=== PATIENT | female | born 1995 | race African-American/Black ===

== ENCOUNTER 2020-07-19 23:50 | Emergency (ER) | payer OTHER ==
[~2020-07-19] VITALS: Ht 170.2 cm; Wt 106.1 kg
--- NOTE | 2020-07-20 00:46 | NUR ---
Lower back pain x1 day radiates down L leg. No previous medical Hx.
--- NOTE | 2020-07-20 00:48 | NUR ---
No trauma to LLE noted. Pt ambulates with steady gait with aching and numbness at 8/10 pain.
[2020-07-20] MEDS ORDERED: LIDODERM700 M1 TOPIC (00:50)
[2020-07-20] MEDS ORDERED: NAPROXEN250 MG ORAL (00:50)
[2020-07-20] MEDS ORDERED: ROBAXIN-750750 MG PO (00:50)
--- NOTE | 2020-07-20 00:56 | Emergency Room Report ---
History of Present Illness General Chief Complaint: Lower Extremity Injury Present Illness HPI 25-year-old female with no relevant past history here with back pain. Patient says that for the past 24 hours she has been having left lower back soreness that she now feels radiating down her left leg. She took Tylenol for the pain with only mild relief. Pain is dull nature, 5 out of 10 intensity, located in the left flank, radiates down the left leg. No headache, vision changes, fevers, chills, chest pain, palpitation, shortness of breath, abdominal pain, n ausea vomiting, diarrhea, dysuria, focal numbness or weakness, urinary or fecal retention or incontinence, drug use. Allergies: Coded Allergies: No Known Allergies (Unverified , 07/20/20) COVID-19 Screening Contact w/high risk pt: No Experienced COVID-19 symptoms?: No COVID-19 Testing performed [employer]: No Patient History Last Menstrual Period: 06/01/2020 Now: No Review of Systems All Other Systems: negative except mentioned in HPI Physical Exam Vital Signs Date Time Temp Pulse Resp B/P (MAP) Pulse Ox O2 Delivery O2 Flow Rate FiO2 07/20/20 00:42 98.2 65 16 119/67 (84) 95 Room Air Sp02 EP Interpretation: reviewed, normal General Appearance: no apparent distress, alert, non-toxic Head: normocephalic, atraumatic Eyes: bilateral eye normal inspection, bilateral eye PERRL ENT: hearing grossly normal, normal pharynx, no angioedema, normal voice Neck: full range of motion, supple/symm/no masses Respiratory: chest non-tender, lungs clear, normal breath sounds, speaking full sentences Cardiovascular #1: regular rate, rhythm, no edema Cardiovascular #2: 2+ carotid (R), 2+ carotid (L), 2+ radial (R), 2+ radial (L), 2+ dorsalis pedis (R), 2+ dorsalis pedis (L) Gastrointestinal: normal bowel sounds, non tender, soft, non-distended, no guarding, no rebound Rectal: deferred Genitourinary: normal inspection, no CVA tenderness Musculoskeletal: back normal, normal range of motion, gait/station normal, other - Left lower paraspinal tenderness on palpation. No CVA tenderness. Positive straight leg raise test. No midline spinal tenderness Neurologic: alert, motor strength/tone normal, oriented x3, sensory intact, responsive, speech normal Psychiatric: judgement/insight normal, memory normal, mood/affect normal, no suicidal/homicidal ideation Lymphatic: no adenopathy Medical Decision Making Diagnostic Impression: Primary Impression: Sciatica Additional Impression: UTI (urinary tract infection) ER Course ddx: Musculoskeletal, compression fx, herniated sic, sciatica, spinal stenosis, epidural abscess, osteomyelitis, cauda equina, mass-tumor 25-year-old female here with back pain rating down her left leg. Patient had positive straight leg raise test and left lumbar paraspinal tenderness on palpation. Likely sciatica and musculoskeletal in nature. She was given pain medication emergency department with some relief. Given prescription for Lidoderm patch, Robaxin, Naprosyn to use as needed for pain. She had no red flag warning signs. She was also found to have had a urinary tract infection. Given prescription for Keflex. Told to follow-up with her primary care physician. Discharged in stable condition. Last Vital Signs Date Time Temp Pulse Resp B/P (MAP) Pulse Ox O2 Delivery O2 Flow Rate FiO2 07/20/20 00:42 98.2 65 16 119/67 (84) 95 Room Air Scripts Cephalexin* (KEFLEX*) 500 Mg Capsule 500 MG ORAL EVERY 12 HOURS, #14 CAP 0 Refills Prov: Weston Sanchez M.D. 07/20/20 Lidocaine Patch* (Lidoderm Patch*) 1 Each Adh..patch 1 PATCH TOPIC DAILY, #7 PATCH 0 Refills Patch(es) may remain in place for up to 12 hours in any 24-hour period. Prov: Weston Sanchez M.D. 07/20/20 Naproxen* (NAPROSYN*) 250 Mg Tablet 250 MG ORAL TID PRN for For Pain, #20 TAB 0 Refills Prov: Weston Sanchez M.D. 07/20/20 Methocarbamol* (ROBAXIN-750*) 750 Mg Tablet 750 MG PO TID, #21 TAB 0 Refills Prov: Weston Sanchez M.D. 07/20/20 Referrals: [facility] Patient Instructions: Sciatica Weston Sanchez M.D. Jul 20, 2020 00:56
--- NOTE | 2020-07-20 00:56 | NUR ---
ED Nurse Note:urine to lab, awaiting hcg results for meds
[2020-07-20 00:58] LABS: APPEARANCE,URINE SLIGHTLY CLOUDY; BILIRUBIN, URINE NEGATIVE (NEGATIVE); GLUCOSE, URINE (UA) NEGATIVE (NEGATIVE); KETONES,URINE NEGATIVE (NEGATIVE); LEUKOCYTE ESTERASE ,URINE 2+ (NEGATIVE); NITRITE,URINE NEGATIVE (NEGATIVE); PH,URINE 6.5 (4.5-8.0); PROTEIN,URINE 2+ (NEGATIVE); UROBILINOGEN,URINE 4 MG/DL (0.0-1.0)
[2020-07-20 01:23] LABS: COLOR,URINE YELLOW
[2020-07-20] MEDS: Methocarbamol 750mg tab ORAL ONE (01:25)
[2020-07-20] MEDS: Ketorolac 30mg Inj IM ONE (01:26)
[2020-07-20] MEDS ORDERED: CEPHALEXIN500 MG ORAL (01:28)
[2020-07-20 01:34] VITALS: BP 119/67
--- NOTE | 2020-07-20 01:34 | NUR ---
ED Nurse Note: Pt cleared by health care Provider for discharge. DC instructions/prescription was given and explained to pt and verbalized understanding of teachings. All medical devices such as ID band removed. Pt is AAO x4, ambulatory and left with all personal belongings.
== END 2020-07-20 01:35 | disposition home or self-care (01) ==
LOC: EMR 07-20 00:56
DX: M54.30 Sciatica, unspecified side (principal); N39.0 Urinary tract infection, site not specified
CPT/HCPCS: 81003; 81025; 96372; J1885; Z7502; 99283